=== PATIENT | female | born 2000 | race Two or more races ===

== ENCOUNTER 2020-09-28 02:48 | Emergency (ER) | payer MEDICARE, OTHER ==
[2020-09-28 03:36] LABS: HEMOGLOBIN 12.7 gm/dl (12.3-15.3); RED BLOOD COUNT 4.54 M/UL (4.00-5.10)
[2020-09-28 03:54] LABS: BUN/CREATININE RATIO 14 (0-10)
== END 2020-09-28 04:30 | disposition home or self-care (01) ==
LOC: ER1 02:48
PROVIDERS: Family Medicine
DX: R42 Dizziness and giddiness (principal); R20.2 Paresthesia of skin; R61 Generalized hyperhidrosis; Z88.5 Allergy status to narcotic agent
CPT/HCPCS: 80053; 84439; 84443; 84703; 85025; 93005; 99284

== ENCOUNTER 2021-11-16 20:37 | Emergency (ER) | payer MEDICARE, OTHER, MEDICAID | END 2021-11-16 22:37 | disposition home or self-care (01) | LOC: ER1 20:37 | DX: N93.9 Abnormal uterine and vaginal bleeding, unspecified (principal); Z88.5 Allergy status to narcotic agent | CPT/HCPCS: 81001; 84703; 99284 ==